=== PATIENT | female | born 1960 | race Caucasian/White ===

== ENCOUNTER → 2016-10-28 | Outpatient (CLI) | payer OTHER ==
[~2016-10-28] MED LIST: B12 PO; CALC600T86 PO; CHOL10003 PO; DESO1TAB15 PO; FLEC50TA15 PO; MULT-806 PO; diltiazem
--- NOTE | 2016-10-28 13:22 | DI ---
Indication: ITS.REASON: R22.1 MASS OF NECK PROCEDURE: US SOFT TISSUE NECK: Encounter: Initial Comparison: None Technique: Grayscale and color Doppler sonographic imaging of the right neck was performed to evaluate the patient's palpable abnormality. Findings/ Impression: The area of palpable concern represents a normal appearing thin lymph node with a fatty hilum measuring 3 mm in short axis dimension. No concerning mass or fluid collection. .
== END ==
LOC: IMA 12:32
PROVIDERS: ATTEND Family Medicine
DX: R22.1 Localized swelling, mass and lump, neck (principal)